=== PATIENT | female | born 1985 | race African-American/Black ===

== ENCOUNTER → 2018-02-04 19:38 | Outpatient (CLI) | payer MEDICAID | END | disposition home or self-care (01) | LOC: D.SLEEP 19:38 | DX: G47.9 Sleep disorder, unspecified (principal) ==

== ENCOUNTER → 2018-05-06 19:27 | Outpatient (CLI) | payer MEDICAID ==
[~2018-05-06 19:27] MED LIST: APLENZIN174 MG; FERROUS SULFAT325 MG PO; GABAPENTIN100 MG; SINGULAIR10 MG PO; TOPAMAX50 MG PO
== END | disposition home or self-care (01) ==
LOC: D.SLEEP 19:27
DX: G47.33 Obstructive sleep apnea (adult) (pediatric) (principal); Z01.812 Encounter for preprocedural laboratory examination

== ENCOUNTER 2018-05-08 19:39 | Emergency (ER) | payer MEDICAID ==
[~2018-05-08] VITALS: Ht 167.6 cm; Wt 121.4 kg
[2018-05-08 19:54] VITALS: Ht 167.6 cm; Wt 121.4 kg
[2018-05-08] MEDS ORDERED: FERROUS SULFAT325 MG PO (19:56)
[2018-05-08] MEDS ORDERED: GABAPENTIN100 MG (19:56)
[2018-05-08] MEDS ORDERED: TOPAMAX50 MG PO (19:57)
[2018-05-08] MEDS ORDERED: SINGULAIR10 MG PO (19:57)
[2018-05-08] MEDS ORDERED: APLENZIN174 MG (19:59)
[2018-05-08 20:41] LABS: BASOPHILS 0.2 % (0-2); EOSINOPHILS 0.6 % (0-7); HEMATOCRIT 33.2 % (36.0-48.0); HEMOGLOBIN 10.8 g/dL (12-16); IMMATURE GRANULOCYTES 0.3 % (0-5); MCHC 32.5 g/dL (31.0-37.0); MCV 76.9 fL (80.0-100.0); MEAN PLATELET VOLUME 9.5 fL (7.4-10.4); MONOCYTES 5.2 % (2-11); NEUTROPHILS 65.7 % (40-80); RBC 4.32 10x6/uL (4.00-5.40); RDW 18.1 % (11.5-14.5); WBC 11.6 10x3/uL (4.8-10.8)
[2018-05-08 20:51] LABS: PLATELET COUNT 361 10x3/uL (130-400)
[2018-05-08 20:58] LABS: HCG SERUM NEGATIVE (NEGATIVE)
[2018-05-08 21:05] LABS: ALBUMIN 3.4 g/dL (3.4-5.0); ALKALINE PHOSPHATASE 85 U/L (46-116); ALT (SGPT) 15 U/L (10-68); CALC OSMOLALITY 282 mosm/kg (275-300); CALCIUM 8.6 mg/dL (8.5-10.1); CARBON DIOXIDE 21.4 mmol/L (21.0-32.0); CHLORIDE - SERUM 109 mmol/L (98-107); CREATININE - SERUM 0.9 mg/dL (0.6-1.3); GLUCOSE 103 mg/dL (74-106); POTASSIUM - SERUM 3.7 mmol/L (3.5-5.1); SODIUM 142 mmol/L (136-145); UREA NITROGEN 13 mg/dL (7-18); eGFR NON AFRICAN AMERICAN 77 mL/min (90-120)
[2018-05-09 01:32] LABS: AMYLASE - SERUM 39 U/L (25-115); LIPASE 169 U/L (73-393)
[2018-05-09 04:05] LABS: APPEARANCE TURBID (CLEAR); BACTERIA NONE SEEN /hpf (NONE SEEN); BILIRUBIN NEGATIVE (NEGATIVE); COLOR BROWN (YELLOW); EPITHELIAL CELLS 0-5 /hpf (0-5); GLUCOSE NEGATIVE (NEGATIVE); KETONE SMALL mg/dL (NEGATIVE); NITRITE NEGATIVE (NEGATIVE); PROTEIN 2+ mg/dL (NEGATIVE); RED CELLS - URINE >50 /hpf (0-5); UROBILINOGEN NORMAL (NORMAL); WHITE CELLS - URINE 0-5 /hpf (0-5)
[2018-05-09 05:29] VITALS: BP 101/67
== END 2018-05-09 05:30 | disposition home or self-care (01) ==
LOC: D.ER 19:39
PROVIDERS: Family Medicine
DX: N93.8 Other specified abnormal uterine and vaginal bleeding (principal)